=== PATIENT | male | born 1945 | race Native Hawaiian/Other Pacific Islander ===

== ENCOUNTER 2020-04-29 03:03 | Emergency (ER) | payer OTHER ==
[~2020-04-29] VITALS: Ht 193 cm; Wt 156.5 kg
[2020-04-29 04:02] VITALS: BP 148/72; TEMP 98.2
== END 2020-04-29 04:02 | disposition home or self-care (01) ==
LOC: ED 03:03
DX: T78.49XA Other allergy, initial encounter (principal)
CPT/HCPCS: 99283

== ENCOUNTER 2020-05-07 05:46 | Emergency (ER) | payer OTHER ==
[~2020-05-07] VITALS: Ht 193 cm; Wt 156.5 kg
[2020-05-07 05:54] VITALS: BP 194/98; TEMP 98
== END 2020-05-07 07:45 | disposition home or self-care (01) ==
LOC: ED 05:46
DX: L23.6 Allergic contact dermatitis due to food in contact with the skin (principal)
CPT/HCPCS: 96374; 96375; 99284; J1200; J2930

== ENCOUNTER 2020-07-13 07:58 | Outpatient (CLI) | payer OTHER | END 2020-07-13 19:33 | disposition home or self-care (01) | LOC: CT 07:58 | PROVIDERS: ATTEND Urology | DX: N28.89 Other specified disorders of kidney and ureter (principal) | CPT/HCPCS: 36415; 82565; 84520; Q9963 ==

== ENCOUNTER 2020-12-25 09:05 | Outpatient (CLI) | payer OTHER, MEDICARE | END 2020-12-25 19:11 | disposition home or self-care (01) | LOC: US 09:05 | PROVIDERS: ATTEND Specialist | DX: N28.1 Cyst of kidney, acquired (principal); Z90.5 Acquired absence of kidney ==

== ENCOUNTER 2021-05-10 10:06 | Emergency (ER) | payer OTHER ==
[~2021-05-10] VITALS: Ht 193 cm; Wt 158.8 kg
[2021-05-10 11:07] VITALS: BP 145/80; TEMP 98.6
== END 2021-05-10 11:08 | disposition home or self-care (01) ==
LOC: ED 10:06
DX: S96.811A Strain of other specified muscles and tendons at ankle and foot level, right foot, initial encounter (principal); S93.691A Other sprain of right foot, initial encounter; X50.1XXA Overexertion from prolonged static or awkward postures, initial encounter; Y92.89 Other specified places as the place of occurrence of the external cause
CPT/HCPCS: 96372; 99282; J1885

== ENCOUNTER 2022-10-03 12:46 | Outpatient (CLI) | payer OTHER, MEDICARE | END 2022-10-03 19:18 | disposition home or self-care (01) | LOC: RAD 12:46 | PROVIDERS: ATTEND Physician Assistant | DX: M25.552 Pain in left hip (principal); M25.551 Pain in right hip ==

== ENCOUNTER → 2022-12-13 | Outpatient (CLI) | payer OTHER, MEDICARE | LOC: LAB 19:43 | PROVIDERS: ATTEND Physician Assistant | DX: R19.7 Diarrhea, unspecified (principal) | CPT/HCPCS: 83993; 87015; 87045; 87177; 87209; 87899 ==

== ENCOUNTER 2023-01-26 11:53 | Outpatient (CLI) | payer OTHER, MEDICARE | END 2023-01-26 19:14 | disposition home or self-care (01) | LOC: RAD 11:53 | PROVIDERS: ATTEND Physician Assistant | DX: M54.59 Other low back pain (principal) ==